=== PATIENT | male | born 1985 | race Caucasian/White ===

== ENCOUNTER → 2017-09-05 16:24 | Outpatient (CLI) | payer OTHER, SELFPAY ==
--- NOTE | 2017-09-05 16:28 | DI.CT.S_ITS ---
PROCEDURE: CT LE LT W CON INDICATIONS: 32 year-old male with left ankle pain, with no known injury. TECHNIQUE: Noncontrast 1-1.5 mm axial sections acquired from above the tibiotalar joint to the bottom of the calcaneus, with coronal and sagittal reformats. COMPARISON: None. FINDINGS: Image quality: Excellent. 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 There is associated dorsal osteophyte formation involving the talar head and neck from abnormal bony motion. No suspicious lytic or blastic bony lesions. No acute fractures. Small corticated bony fragment lies inferior to the medial malleolus. Soft tissues: Achilles tendon appears intact. No tibiotalar joint effusion. The medial, lateral, and anterior compartment tendons appear in expected positions. IMPRESSION: 1. 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 2. Small posttraumatic heterotopic ossification inferior to the medial malleolus, consistent with remote deltoid ligament injury. Dictated by: Chandana Griffiths M.D. on 09/05/2017 at 16:57 Approved by: Chandana Griffiths M.D. on 09/05/2017 at 17:03
--- NOTE | 2017-09-05 16:34 | DI.MRI.S_ITS ---
PROCEDURE: MR ANKLE LT WO CON INDICATIONS: 32 year-old male with flatfoot and left ankle pain. TECHNIQUE: Noncontrast sagittal T1 spin echo and T2 fast spin echo with fat saturation, axial proton density fast spin echo and T2 fast spin echo with fat saturation, coronal T1 spin echo and T2 fast spin echo with fat saturation through the ankle/hindfoot. COMPARISON: [facility], CT, CT LE LT WO CON, 09/05/2017, 16:33. FINDINGS: Image quality: Excellent. Bones and joints: No bone marrow contusions or fractures. An osseous talocalcaneal coalition involving the middle subtalar joint is again noted. There is associated beaklike osteophyte formation involving the talar head and neck. No osteochondral injuries of the talar dome. No pathologic joint effusions. Medial structures: The posterior tibialis, flexor digitorum longus, and flexor hallucis longus tendons are intact. The posterior tibial neurovascular bundle appears normal within the tarsal tunnel, without extrinsic mass effect. The deep layer (anterior and posterior tibiotalar ligaments) and superficial layer (tibionavicular, tibiospring, and tibiocalcaneal ligaments) of the deltoid ligament appear normal. The spring ligament components (superomedial calcaneonavicular, medioplantar oblique calcaneonavicular, and inferoplantar longitudinal ligaments) appear attenuated but still intact. Lateral structures: The anterior talofibular, calcaneofibular, and posterior talofibular ligaments appear intact. More superiorly, the anterior and posterior tibiofibular ligaments appear intact, as is the intermalleolar ligament. The tibiofibular syndesmosis is normal in width at 2 mm or less. The peroneus longus and brevis tendons demonstrate normal location and morphology. Adjacent bony peroneal tubercle and retrotrochlear prominence are normal in size. The sinus tarsi demonstrates normal fatty signal, without edema, fibrosis, or cyst formation. Visualized sinus tarsi components (cervical ligament, interosseous talocalcaneal ligament, roots of the inferior extensor retinaculum) appear normal. The calcaneonavicular and calcaneocuboid components of the bifurcate ligament appear intact. The dorsal calcaneocuboid ligament appears intact. Anterior structures: The tibialis anterior, extensor hallucis longus, and extensor digitorum longus tendons appear intact. The dorsal talonavicular ligament appears intact. Posterior and plantar structures: Achilles tendon is intact. Medial and lateral bands of the plantar fascia are of normal thickness. No abductor digiti quinti muscle atrophy to suggest Norman neuropathy. IMPRESSION: 1. 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 2. Attenuation of the spring ligament, consistent with given clinical history of flatfoot. Dictated by: Chandana Griffiths M.D. on 09/06/2017 at 10:20 Approved by: Chandana Griffiths M.D. on 09/06/2017 at 10:28
== END ==
PROVIDERS: Visit Provider Podiatrist
DX: M25.572 Pain in left ankle and joints of left foot (principal)
CPT/HCPCS: 73700; 73721